=== PATIENT | male | born 1945 | race Caucasian/White ===

== ENCOUNTER 2022-05-11 08:29 | Outpatient (CLI) | payer OTHER | END 2022-05-11 08:30 | disposition home or self-care (01) | LOC: NM 08:29 | PROVIDERS: ATTEND Family Medicine | DX: G20 Parkinson's disease (principal) | CPT/HCPCS: 78803; A9584 ×2 ==

== ENCOUNTER 2022-06-28 17:35 | Inpatient (IN) | payer OTHER ==
[2022-06-28] MEDS ORDERED: Electrolyte Replacement Protocol 1 EACH IVPB SCH (18:11)
[2022-06-28] MEDS ORDERED: Ipratropium/Albuterol 3 ML NEB NEB PRN (18:11)
[2022-06-28] MEDS ORDERED: niCARdipine 25 MG in Sodium Chloride 0.9% 250 ML 250 ML IVPB PRN (18:15)
[2022-06-28] MEDS ORDERED: Labetalol HCl 100 MG/20 ML VIAL SLOW IVP PRN (18:15)
[2022-06-28] MEDS ORDERED: Ventilator Sedation Protocol 1 EACH FS SCH (18:15)
[2022-06-28] MEDS ORDERED: Ondansetron PF 4 MG/2 ML Vial IVP PRN (18:20)
[2022-06-28] MEDS ORDERED: Ondansetron ODT 4 MG TAB PO PRN (18:20)
[2022-06-28] MEDS ORDERED: Acetaminophen 650 MG Suppository PR PRN (18:20)
[2022-06-28 18:21] LABS: Actual Bicarbonate (HCO3a) 22.9 mEq/L (22-28); Base Excess (BEa) -1.2 mEq/L (-2.0 to +3.0); CO2 Tension 36.4 mmHg (35.0-45.0); Calcium, Ionized (arterial) 1.21 mmol/L (1.12-1.30); Carboxyhemoglobin (COHb) 0.7 gm% (0.0-3.0); Hematocrit-ABG 37 % (42.0-52.0); Hemoglobin (Hb) 12.7 g/dL (14.0-18.0); O2 Tension (PaO2), arterial 69.6 mmHg (> 70.0); Potassium - ABG Lab 4.59 mmol/L (3.70-5.30); pH, Arterial 7.416 (7.35-7.45)
[2022-06-28 18:24] LABS: Puncture Site RRA
[2022-06-28] MEDS ORDERED: Sodium Chloride 0.9% 1,000 ML IV SCH (18:30)
[2022-06-28] MEDS ORDERED: Fentanyl BOLUS 250 ML IVPB PRN (18:30)
[2022-06-28] MEDS ORDERED: Fentanyl CADD 100 ML IV SCH (18:30)
[2022-06-28] MEDS ORDERED: DISCONTINUE PREVIOUS NARCOTIC PAIN MEDICATIONS AND BENZODIAZEPINES FS SCH (18:30)
[2022-06-28] MEDS ORDERED: Morphine 2 MG/ML VIAL SLOW IVP PRN (18:30)
[2022-06-28] MEDS ORDERED: Propofol 1,000 MG/100 ML VIAL IV PRN (18:30)
[2022-06-28] MEDS ORDERED: Propofol BOLUS 1,000 MG/100 ML VIAL IV PRN (18:30)
[2022-06-28] MEDS ORDERED: Bisacodyl 10 MG SUPP PR PRN (18:33)
[2022-06-28] MEDS ORDERED: levETIRAcetam 500 MG/5 ML VIAL SLOW IVP SCH ×2 (19:15→21:00)
[2022-06-28] MEDS: Lorazepam 2 MG/ML VIAL SLOW IVP PRN ×2 (19:26→20:58)
[2022-06-28 20:22] VITALS: BMI 24.5
[2022-06-28] MEDS: Morphine 2 MG/ML VIAL SLOW IVP PRN ×4 (20:53→23:51)
[2022-06-28] MEDS ORDERED: Famotidine/PF 20 mg/2ml Vial SLOW IVP SCH (21:00)
[2022-06-29 00:19] VITALS: TEMP 97.2
[2022-06-29] MEDS: Morphine 2 MG/ML VIAL SLOW IVP PRN ×6 (00:28→05:37)
[2022-06-29] MEDS ORDERED: Lorazepam 2 MG/ML VIAL SLOW IVP PRN (00:46)
[2022-06-29] MEDS ORDERED: DC Sedation Protocol FS ONE (00:46)
[2022-06-29] MEDS ORDERED: cefTRIAXone\\ROCEPHIN 2 GM in Sodium Chloride 0.9% 100 ML IVPB SCH (09:00)
[2022-06-29] MEDS ORDERED: levETIRAcetam 500 MG/5 ML VIAL SLOW IVP SCH (09:00)
== END 2022-06-29 05:43 | disposition expired | DRG 64 ==
LOC: CCU 17:35
PROVIDERS: ADMIT Internal Medicine; ATTEND Internal Medicine
PROC: 5A1935Z Respiratory Ventilation, Less than 24 Consecutive Hours (ICD-10-PCS; principal; 2022-06-28)
DX: I63.522 Cerebral infarction due to unspecified occlusion or stenosis of left anterior cerebral artery (principal); G93.5 Compression of brain; I33.0 Acute and subacute infective endocarditis; J96.01 Acute respiratory failure with hypoxia; D69.3 Immune thrombocytopenic purpura; I48.92 Unspecified atrial flutter; G20 Parkinson's disease; I63.531 Cerebral infarction due to unspecified occlusion or stenosis of right posterior cerebral artery; Z66 Do not resuscitate; Z51.5 Encounter for palliative care; F02.80 Dementia in other diseases classified elsewhere, unspecified severity, without behavioral disturbance, psychotic disturbance, mood disturbance, and anxiety; E78.5 Hyperlipidemia, unspecified; I25.10 Atherosclerotic heart disease of native coronary artery without angina pectoris; G83.11 Monoplegia of lower limb affecting right dominant side; E53.8 Deficiency of other specified B group vitamins; Z95.2 Presence of prosthetic heart valve
CPT/HCPCS: 36600; 70450; 82805; 94002; J2060; J2272; J2704